=== PATIENT | male | born 1995 | race Two or more races ===

== ENCOUNTER 2017-02-04 18:22 | Emergency (ER) | payer SELFPAY ==
[2017-02-04 18:26] VITALS: BP 157/73
--- NOTE | 2017-02-04 18:38 | UC ---
Skin Complaint HPI - HPI Summary HPI Summary: stung on left hand by a bee one hour prior to arrival--his work wanted him to come and get checked, no pain swelling or hives - History of Current Complaint Chief Complaint: UCSkin Time Seen by Provider: 02/04/17 18:27 Stated Complaint: BEE STING Hx Obtained From: Patient Onset/Duration: Sudden Onset, Lasting Hours - 1, Still Present Timing: Constant Onset Severity: Mild Current Severity: None Location: Discrete - left hand Aggravating: Nothing Alleviating: Nothing Associated Signs & Symptoms: Positive: Negative Related History: Possible Reaction to: Insect - Allergy/Home Medications Allergies/Adverse Reactions: Allergies Allergy/AdvReac Type Severity Reaction Status Date / Time Bee Venom Allergy Severe Anaphylatic Verified 02/04/17 18:26 Shock Review of Systems Constitutional: Negative Skin: Other - beesting to left hand Eyes: Negative ENT: Negative Respiratory: Negative Cardiovascular: Negative Gastrointestinal: Negative Genitourinary: Negative Motor: Negative Neurovascular: Negative Musculoskeletal: Negative Neurological: Negative Psychological: Negative All Other Systems Reviewed And Are Negative: Yes PMH/Surg Hx/FS Hx/Imm Hx Previously Healthy: Yes - Surgical History Surgical History: Yes Surgery Procedure, Year, and Place: ADDENOIDECTOMY, TONSILS. ear tubes placed age 4 - Family History Known Family History: Positive: None - Social History Occupation: Employed Full-time Lives: With Family Alcohol Use: Occasionally Substance Use Type: Marijuana Substance Use Comment - Amount & Last Used: occasionally Smoking Status (MU): Never Smoked Tobacco - Immunization History Vaccination Up to Date: Yes Physical Exam Triage Information Reviewed: Yes Appearance: Well-Appearing, No Pain Distress, Well-Nourished Vital Signs: Initial Vital Signs Temp 97.9 F 02/04/17 18:23 Pulse 90 02/04/17 18:23 Resp 16 02/04/17 18:23 BP 157/73 02/04/17 18:23 Pulse Ox 99 02/04/17 18:23 Vital Signs Reviewed: Yes Eye Exam: Normal Eyes: Positive: Conjunctiva Clear ENT Exam: Normal ENT: Positive: Normal ENT inspection, Hearing grossly normal, Pharynx normal. Negative: Nasal congestion, Nasal drainage, Trismus, Muffled/hoarse voice Dental Exam: Normal Neck exam: Normal Neck: Positive: Supple, Nontender, No Lymphadenopathy Respiratory Exam: Normal Respiratory: Positive: Chest non-tender, Lungs clear, Normal breath sounds, No respiratory distress, No accessory muscle use Cardiovascular Exam: Normal Cardiovascular: Positive: RRR, No Murmur, Pulses Normal, Brisk Capillary Refill Musculoskeletal Exam: Normal Musculoskeletal: Positive: Strength Intact, ROM Intact, No Edema Neurological Exam: Normal Neurological: Positive: Alert, Muscle Tone Normal Psychological Exam: Normal Skin Exam: Normal Skin: Positive: Other - 10mm ligh pink area around insect sting on hand Course/Dx - Course Course Of Treatment: soap and water wash, cool soaks, benadryl prn follow with pcp prn - Differential Diagnoses - Skin Complaint Differential Diagnoses: Cellulitis, Contact Dermatitis, Local Allergic Reaction - Diagnoses Provider Diagnoses: Local reaction to a bee sting Discharge - Discharge Plan Condition: Stable Disposition: HOME Patient Education Materials: Diphenhydramine (By mouth), Insect Bite or Sting ( ED) Forms: *Work Release Referrals: [facility] [Outside] - If Needed
== END 2017-02-04 18:42 | disposition home or self-care (01) ==
LOC: UCEAST 18:22
DX: T63.441A Toxic effect of venom of bees, accidental (unintentional), initial encounter (principal)
CPT/HCPCS: 99201; G0463

== ENCOUNTER 2018-06-02 12:40 | Emergency (ER) | payer BC ==
[2018-06-02 12:56] VITALS: BP 140/82
--- NOTE | 2018-06-02 12:57 | UC ---
Respiratory Complaint HPI - HPI Summary HPI Summary: 22 yo male presents with a productive cough. He tells me that this morning he coughed up green tinted sputum. As the morning progressed the sputum turned blue in color. He brought a sample of the phlegm with him that is, indeed, quite blue. He admits to drinking a blue colored gatorade this morning. He is feeling well otherwise, but says he has some intermittent lightheadedness over the last few months. Denies fever, chills, sinus symptoms, cough, sore throat, SOB, chest pain, n/v. He does smoke daily. 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 He says that the majority of the time he wears a face mask when he is grinding. - History of Current Complaint Chief Complaint: UCGeneralIllness Stated Complaint: EXHAUSTION, LIGHTHEADED Hx Obtained From: Patient Onset/Duration: Sudden Onset Severity Currently: None Pain Intensity: 0 Pain Scale Used: 0-10 Numeric Character: Cough: Productive - Allergies/Home Medications Allergies/Adverse Reactions: Allergies Allergy/AdvReac Type Severity Reaction Status Date / Time bee venom protein (honey bee) Allergy Anaphylatic Verified 06/02/18 12:48 Shock Home Medications: Home Medications NK [No Home Medications Reported] 06/02/18 [History Confirmed 06/02/18] PMH/Surg Hx/FS Hx/Imm Hx - Additional Past Medical History Additional PMH: None - Surgical History Surgical History: Yes Surgery Procedure, Year, and Place: ADDENOIDECTOMY, TONSILS. ear tubes placed age 4 - Family History Known Family History: Positive: None - Social History Occupation: Employed Full-time Lives: With Family Alcohol Use: Occasionally Substance Use Type: Marijuana Substance Use Comment - Amount & Last Used: daily Smoking Status (MU): Smoker, Current Status Unknown Amount Used/How Often: vapes - Immunization History Vaccination Up to Date: Yes Review of Systems All Other Systems Reviewed And Are Negative: Yes Constitutional: Positive: Negative Skin: Positive: Negative Eyes: Positive: Negative ENT: Positive: Negative Respiratory: Positive: Cough Cardiovascular: Positive: Negative Gastrointestinal: Positive: Negative Neurovascular: Positive: Negative Physical Exam - Summary Physical Exam Summary: GENERAL: NAD. WDWN. No pain distress. SKIN: No rashes, sores, lesions, or open wounds. HEENT: Head: AT/NC Eyes: EOM intact. Conjunctiva clear without inflammation or discharge. Ears: Hearing grossly normal. TMs intact, no bulging, erythema, or edema. Nose: Nasal mucosa pink and moist. NTTP maxillary and frontal sinus. Throat: Posterior oropharynx without exudates, erythema, or tonsillar enlargement. Uvula midline. NECK: Supple. Nontender. No lymphadenopathy. CHEST: CTAB. No r/r/w. No accessory muscle use. Breathing comfortably and in no distress. CV: RRR. Without m/r/g. Pulses intact. Cap refill <2seconds NEURO: Alert. PSYCH: Age appropriate behavior. Triage Information Reviewed: Yes Vital Signs: Initial Vital Signs Temp 98.6 F 06/02/18 12:48 Pulse 74 06/02/18 12:48 Resp 18 06/02/18 12:48 BP 140/82 06/02/18 12:48 Pulse Ox 98 06/02/18 12:48 Vital Signs Reviewed: Yes Diagnostic Evaluation - Laboratory O2 Sat by Pulse Oximetry: 98 Respiratory Course/Dx - Course Course Of Treatment: CXR: IMPRESSION: NO ACTIVE CARDIOPULMONARY DISEASE. Pt was able to produce a sputum sample that had some small blue phlegm - will send this for culture and call him with results. There could be an underlying pseudomonas infection or this could be due to the blue gatorade he drank earlier today - either way he is asymptomatic and afebrile at this time, therefore will hold off on treatment and await results. - Differential Dx/Diagnosis Provider Diagnosis: Productive cough Discharge - Sign-Out/Discharge Documenting (check all that apply): Patient Departure All imaging exams completed and their final reports reviewed: Yes - Discharge Plan Condition: Stable Disposition: HOME Referrals: No Primary Care Phys,NOPCP [Primary Care Provider] - Additional Instructions: If you develop a fever, shortness of breath, chest pain, new or worsening symptoms - please call your PCP or go to the ED. Your blood pressure was mildly high at todays visit. Please see your primary provider within 4 weeks for recheck and re-evaluation. 1) We have taken a sample of your blue sputum and will call you in 2-3 days with results. If you have not heard from our clinic, please call and ask about your results - Billing Disposition and Condition Condition: STABLE Disposition: Home
== END 2018-06-02 14:05 | disposition home or self-care (01) ==
LOC: UCEAST 12:40
DX: R05 Cough (principal); Z91.030 Bee allergy status; Z72.0 Tobacco use
CPT/HCPCS: 71046; 87070; 87205; 99211; G0463

== ENCOUNTER 2018-06-28 12:34 | Emergency (ER) | payer BC ==
[2018-06-28 12:43] VITALS: BP 130/78
--- NOTE | 2018-06-28 12:52 | UC ---
Throat Pain/Nasal Efrem HPI - HPI Summary HPI Summary: 23-year-old male presents with onset of general malaise, nasal congestion, bilateral ear fullness, sore throat, and a nonproductive cough 3 days ago. Denies fever, chills, chest pain, shortness of breath, wheezing, abdominal pain , nausea, vomiting, or diarrhea. - History of Current Complaint Chief Complaint: UCGeneralIllness Stated Complaint: HEAD/CHEST CONGESTION Hx Obtained From: Patient Pain Intensity: 5 - Allergies/Home Medications Allergies/Adverse Reactions: Allergies Allergy/AdvReac Type Severity Reaction Status Date / Time bee venom protein (honey bee) Allergy Anaphylatic Verified 06/28/18 12:43 Shock PMH/Surg Hx/FS Hx/Imm Hx Previously Healthy: Yes - Denies significant PMH - Surgical History Surgical History: Yes Surgery Procedure, Year, and Place: ADDENOIDECTOMY, TONSILS. ear tubes placed age 4 - Family History Known Family History: Positive: Non-Contributory - Social History Occupation: Employed Full-time Lives: Alone Alcohol Use: Occasionally Substance Use Type: Marijuana Substance Use Comment - Amount & Last Used: daily Smoking Status (MU): Never Smoked Tobacco Amount Used/How Often: vapes - Immunization History Vaccination Up to Date: Yes Review of Systems All Other Systems Reviewed And Are Negative: Yes Constitutional: Negative: Fever, Chills Eyes: Negative: Blurred Vision, Diplopia, Drainage, Eye Redness, Photophobia ENT: Positive: Sore Throat, Ear Ache, Nasal Discharge, Sinus Congestion. Negative: Sinus Pain/Tenderness Respiratory: Positive: Cough. Negative: Shortness Of Breath Cardiovascular: Negative: Palpitations, Chest Pain Gastrointestinal: Negative: Abdominal Pain, Vomiting, Diarrhea, Nausea Genitourinary: Positive: Negative Musculoskeletal: Positive: Negative Neurological: Positive: Negative Is Patient Immunocompromised?: No Physical Exam - Summary Physical Exam Summary: GENERAL APPEARANCE: Well developed, well nourished, alert and cooperative, and appears to be in no acute distress. HEAD: Atraumatic. normocephalic. EYES: PERRL, EOM intact. Vision is grossly intact. EARS: External auditory canals and tympanic membranes clear, hearing grossly intact. NOSE: No nasal discharge. THROAT: Oral cavity and pharynx normal. No inflammation, swelling, exudate, or lesions. Teeth and gingiva in good general condition. NECK: Neck supple, non-tender without lymphadenopathy. CARDIAC: Normal S1 and S2. No S3, S4 or murmurs. Rhythm is regular. There is no peripheral edema, cyanosis or pallor. Extremities are warm and well perfused. Capillary refill is less than 2 seconds. LUNGS: Clear to auscultation and percussion without rales, rhonchi, wheezing or diminished breath sounds. ABDOMEN: Positive bowel sounds. Soft, nondistended, nontender. No guarding or rebound. No masses or hepatosplenomegally. MUSKULOSKELETAL: ROM intact to all extremities. No joint erythema or tenderness. Normal muscular development. Normal gait. BACK: Examination of the spine reveals normal gait and posture, no spinal deformity or tenderness, decreased range of motion or muscular spasm. EXTREMITIES: No significant deformity or joint abnormality. No edema. Peripheral pulses intact. NEUROLOGICAL: CN II-XII intact. Strength and sensation symmetric and intact throughout. Reflexes 2+ throughout. Cerebellar testing normal. SKIN: Skin normal color, texture and turgor with no lesions or eruptions. Triage Information Reviewed: Yes Vital Signs: Initial Vital Signs Temp 98.4 F 06/28/18 12:40 Pulse 94 06/28/18 12:40 Resp 18 06/28/18 12:40 BP 130/78 06/28/18 12:40 Pulse Ox 98 06/28/18 12:40 Vital Signs Reviewed: Yes Throat Pain/Nasal Course/Dx - Course Course Of Treatment: 23-year-old male presents with onset of general malaise, nasal congestion, bilateral ear fullness, sore throat, and a nonproductive cough 3 days ago. Denies fever, chills, chest pain, shortness of breath, wheezing, abdominal pain, nausea, vomiting, or diarrhea. Afebrile. Vital signs stable. Exam revealed normal appearing adult male with nasal congestion with mild mucosal erythema and edema, mild pharyngeal erythema without exudate or lesions, surgically absent tonsils, nonproductive cough, and bilateral clear breath sounds. Remainder of exam was unremarkable. Recommending symptomatic treatment for viral URI with saline rinses, fluticasone nasal spray, saltwater gargles, [id number] analgesics, and Tessalon Perles as needed for cough. He is to return here or follow up with his primary care provider in 7 days if symptoms do not improve. Warning symptoms were reviewed with the patient. Verbalizes understanding and agrees with plan of care. - Differential Dx/Diagnosis Differential Diagnosis/HQI/PQRI: Influenza, Mononucleosis, Pharyngitis, Sinusitis, Tonsillitis, URI Provider Diagnosis: Viral upper respiratory tract infection with cough Discharge - Sign-Out/Discharge Documenting (check all that apply): Patient Departure All imaging exams completed and their final reports reviewed: No Studies - Discharge Plan Condition: Stable Disposition: HOME Prescriptions: Benzonatate CAP* [Tessalon 100 MG CAP*] 100 mg PO TID PRN #30 cap PRN Reason: Cough Fluticasone NASAL SPRAY 50MCG* [Flonase NASAL SPRAY 50MCG*] 2 spray BOTH NARES DAILY #1 btl Patient Education Materials: Upper Respiratory Infection (ED) Referrals: No Primary Care Phys,NOPCP [Primary Care Provider] - Additional Instructions: Your history and exam are consistent with a viral upper respiratory infection. Viral infections do not respond to antibiotics and are limited to the treatment of symptoms. Viral infections typically run their course in 7-10 days. Drink plenty of fluids to avoid dehydration especially if you are running any fever. Use a saline rinse kit such as Neti Pot or NeilMed at least twice a day to help thin secretions and promote drainage of the sinuses. Use fluticasone (Flonase) nasal spray 2 sprays each nostril once daily. Use an over the counter decongestant such as Sudafed according to directions for the congestion. Take over the counter acetaminophen (Tylenol) or ibuprofen (Advil, Motrin) according to directions as needed for pain or fever. Use salt water gargles several times a day if you have a sore throat. You may also use Chloraseptic spray or Cepacol lonzenges according to directions which contain a numbing medication and can provide some temporary relief from your sore throat. Follow up with your primary care provider in 7 days if symptoms persist. Your blood pressure was mildly elevated in the clinic today. It is recommended that you have this rechecked by your primary care provider. Seek immediate medical attention in the emergency room if you have fever greater than 100.5 F despite taking acetaminophen or ibuprofen, have chest pain , difficulty breathing, are unable to swallow, or have any worsening of symptoms. - Billing Disposition and Condition Condition: STABLE Disposition: Home
== END 2018-06-28 13:10 | disposition home or self-care (01) ==
LOC: UCEAST 12:34
DX: J06.9 Acute upper respiratory infection, unspecified (principal); R05 Cough; F17.210 Nicotine dependence, cigarettes, uncomplicated
CPT/HCPCS: 99212; G0463